=== PATIENT | female | born 1995 | race African-American/Black ===

== ENCOUNTER 2018-09-17 18:02 | Emergency (ER) | payer SELFPAY ==
--- NOTE | 2018-09-17 19:54 | ER Document Report ---
ED Medical Screen (RME) - General Chief Complaint: Flank Pain Stated Complaint: ABDOMINAL PAIN Time Seen by Provider: 09/17/18 19:45 Mode of Arrival: Ambulatory Information source: Patient Notes: Patient is a 22-year-old female who presents to the emergency department with a chief complaint of bilateral flank pain and vaginal pain. Her symptoms started 3 days ago. She does have history of kidney infections in the past. She also complains of mild spotting. Her last menstrual cycle was in the beginning of August. She is sexually active. TRAVEL OUTSIDE OF THE [place] IN LAST 30 DAYS: No - Related Data Allergies/Adverse Reactions: No Known Allergies Allergy (Unverified 09/17/18 18:11) Physical Exam - Abdominal Inspection: Normal Tenderness: Tender - Lower abdomen Doctor's Discharge - Discharge Referrals: SUSAN STEARNS MD [Primary Care Provider] - Follow up as needed
[2018-09-17 20:55] LABS: ABSOLUTE EOSINOPHILS # (AUTO) 0.3 10^3/uL (0.0-0.6); ABSOLUTE LYMPHOCYTES (AUTO) 2.1 10^3/uL (0.5-4.7); ABSOLUTE MONOCYTES (AUTO) 0.7 10^3/uL (0.1-1.4); ABSOLUTE NEUT (AUTO) 4.3 10^3/uL (1.7-8.2); BASOPHILS % (AUTO) 0.7 % (0-2); EOSINOPHILS % (AUTO) 4.1 % (0-6); HEMATOCRIT 35.4 % (36.0-47.0); HEMOGLOBIN 11.7 g/dL (12.0-15.5); LYMPHOCYTES % (AUTO) 28.2 % (13-45); MEAN CORPUSCULAR HEMOGLOBIN 29.5 pg (27.0-33.4); MEAN CORPUSCULAR VOLUME 90 fl (80-97); MONOCYTES % (AUTO) 9.4 % (3-13); PLATELET COUNT 299 10^3/uL (150-450); RED BLOOD COUNT 3.96 10^6/uL (3.72-5.28); RED CELL DISTRIBUTION WIDTH 14.7 % (11.5-14.0); SEGMENTED NEUTROPHILS % (AUTO) 57.6 % (42-78); TOTAL CELLS COUNTED % (AUTO) 100 %; WHITE BLOOD COUNT 7.4 10^3/uL (4.0-10.5)
[2018-09-17 21:01] LABS: APPEARANCE,URINE SLIGHTLY-CLOUDY; BILIRUBIN,URINE NEGATIVE (NEGATIVE); COLOR,URINE YELLOW; GLUCOSE, URINE NEGATIVE (NEGATIVE); KETONES,URINE NEGATIVE (NEGATIVE); LEUKOCYTE ESTERASE,URINE TRACE (NEGATIVE); NITRITE,URINE NEGATIVE (NEGATIVE); PROTEIN,URINE NEGATIVE (NEGATIVE); URINE SPECIFIC GRAVITY 1.029
[2018-09-17 21:09] LABS: ALANINE AMINOTRANSFERASE 17 U/L (9-52); ALBUMIN 4.3 g/dL (3.5-5.0); ALKALINE PHOSPHATASE 70 U/L (38-126); ANION GAP 9 (5-19); ASPARTATE AMINO TRANSFERASE 18 U/L (14-36); BILIRUBIN,DIRECT 0.2 mg/dL (0.0-0.4); BILIRUBIN,TOTAL 0.2 mg/dL (0.2-1.3); BLOOD UREA NITROGEN 12 mg/dL (7-20); CALCIUM 9.7 mg/dL (8.4-10.2); CARBON DIOXIDE 25 mmol/L (22-30); CHLORIDE 106 mmol/L (98-107); GLUCOSE 90 mg/dL (75-110); TOTAL PROTEIN 7.9 g/dL (6.3-8.2)
--- NOTE | 2018-09-18 00:04 | ER Document Report ---
ED GI/ - General Chief Complaint: Flank Pain Stated Complaint: ABDOMINAL PAIN Time Seen by Provider: 09/17/18 23:51 Mode of Arrival: Ambulatory Information source: Patient Notes: Patient is a 22-year-old female with no significant past medical history who presents with 1 day of left flank pain that radiates down to the left lower abdomen. Patient reports that for 5 months ago she experienced "a kidney infection" that felt similar to this, she denies fevers or chills, has had nausea with at least 2 episodes of nonbloody and nonbilious emesis. Patient reports that her periods are irregular and this is normal, her last period was the first week of August but she missed her periods in both June and July. She denies dysuria or hematuria. She denies vaginal bleeding or discharge. TRAVEL OUTSIDE OF THE [place] IN LAST 30 DAYS: No - HPI Patient complains to provider of: Abdominal pain, Flank pain Onset: This afternoon Timing/Duration: Sudden Quality of pain: Cramping, Fullness, Stabbing Severity at maximum: Severe Severity in ED: Moderate Pain Level: 3 Location: LLQ, Left flank Vaginal bleeding (Compared to normal period): None Menstrual period history: Irregular Sexual history: Active Associated symptoms: Nausea, Vomiting. denies: Fever, Vaginal discharge Exacerbated by: Movement Relieved by: Denies Similar symptoms previously: No Recently seen / treated by doctor: No - Related Data Allergies/Adverse Reactions: No Known Allergies Allergy (Unverified 09/17/18 18:11) Past Medical History - General Information source: Patient - Social History Smoking Status: Never Smoker Chew tobacco use (# tins/day): No Frequency of alcohol use: Occasional Drug Abuse: Marijuana Lives with: Family, Friend Family History: Reviewed & Not Pertinent Patient has suicidal ideation: No Patient has homicidal ideation: No - Past Medical History Cardiac Medical History: Reports: None Pulmonary Medical History: Reports: None EENT Medical History: Reports: None Neurological Medical History: Reports: None Endocrine Medical History: Reports: None Renal/ Medical History: Reports: None. Denies: Hx Peritoneal Dialysis Malignancy Medical History: Reports: None GI Medical History: Reports: None Musculoskeletal Medical History: Reports None Skin Medical History: Reports None Psychiatric Medical History: Reports: None Traumatic Medical History: Reports: None Infectious Medical History: Reports: None Past Surgical History: Reports: Hx Gynecologic Surgery - X4 - Immunizations Immunizations up to date: Yes Hx Diphtheria, Pertussis, Tetanus Vaccination: Yes History of Influenza Vaccine for 06/2017 - 11/2017 Season: Unknown Review of Systems - Review of Systems Constitutional: No symptoms reported EENT: No symptoms reported Cardiovascular: No symptoms reported Respiratory: No symptoms reported Gastrointestinal: See HPI, Abdominal pain, Nausea, Vomiting. denies: Black stools Genitourinary: See HPI, Flank pain Female Genitourinary: No symptoms reported Musculoskeletal: No symptoms reported Skin: No symptoms reported Hematologic/Lymphatic: No symptoms reported Neurological/Psychological: No symptoms reported -: Yes All other systems reviewed and negative Physical Exam - Vital signs Interpretation: Normal - Notes Notes: Well-appearing in no acute distress - General General appearance: Appears well, Alert - HEENT Head: Normocephalic, Atraumatic Eyes: Normal Pupils: PERRL - Respiratory Respiratory status: No respiratory distress Chest status: Nontender Breath sounds: Normal Chest palpation: Normal - Cardiovascular Rhythm: Regular Heart sounds: Normal auscultation Murmur: No - Abdominal Inspection: Normal Distension: No distension Bowel sounds: Normal Tenderness: Tender - Mild left flank tenderness, positive CVA tenderness on the left. No: Guarding, Rebound Organomegaly: No organomegaly - Rectal Notes: Deferred - Genitourinary Notes: Deferred - Back Back: Normal, Nontender - Extremities General upper extremity: Normal inspection, Nontender, Normal color, Normal ROM, Normal temperature General lower extremity: Normal inspection, Nontender, Normal color, Normal ROM, Normal temperature, Normal weight bearing. No: Shawanda's sign - Neurological Neuro grossly intact: Yes Cognition: Normal Orientation: AAOx4 Hannah Coma Scale Eye Opening: Spontaneous Hannah Coma Scale Verbal: Oriented [place] Coma Scale Motor: Obeys Commands [place] Coma Scale Total: 15 Speech: Normal Motor strength normal: LUE, RUE, LLE, RLE Sensory: Normal - Psychological Associated symptoms: Normal affect, Normal mood - Skin Skin Temperature: Warm Skin Moisture: Dry Skin Color: Normal Course - Re-evaluation Re-evalutation: 09/18/18 01:24 Labs are grossly unremarkable, urinalysis shows a positive test. Will add on quantitative beta-hCG to blood work and obtain a pelvic ultrasound. 09/18/18 03:30 Quantitative beta-hCG is within normal limits. Pelvic ultrasound shows the beginnings of a gestational sac in the uterus. Patient will be discharged home with return precautions and OB follow-up, she will be provided with a prescription for vitamins. Patient voices both understanding and agreeing with the plan. - Laboratory Result Diagrams: 09/17/18 20:07 09/17/18 20:07 Laboratory results interpreted by me: 09/17/18 09/17/18 09/17/18 18:45 20:07 20:07 Hgb 11.7 L Hct 35.4 L RDW 14.7 H Beta HCG, Quant 999.46 H Urine Urobilinogen 4.0 H Ur Leukocyte Esterase TRACE H Urine HCG, Qual POSITIVE H - Diagnostic Test Radiology reviewed: Reports reviewed Discharge - Discharge Clinical Impression: Abdominal pain affecting Condition: Good Disposition: HOME, SELF-CARE Instructions: Abdominal Pain ([facility]) Additional Instructions: Please follow-up with an silk weaver to establish care. You have been provided with a prescription for vitamins, take this daily as instructed. It is safe to take Tylenol 500 mg every 6-8 hours as needed for pain; did not consume more than 3 g of Tylenol daily. Return to the emergency department if you experience worsening pain, vaginal bleeding/discharge, or have any other concerning symptom. Prescriptions: Pnv,Calcium 72/Iron/Folic Acid [ Plus Tablet] 1 each PO DAILY #30 tablet Referrals: SUSAN STEARNS MD [COMMUNITY BASED STAFF] - Follow up as needed JOLANTA LEWIS MD [ACTIVE STAFF] - Follow up as needed Print Language: Estonian
[2018-09-18] MEDS ORDERED: NORMAL SALINE 1000 ML 1,000 ML IV ONE (01:02)
[2018-09-18] MEDS ORDERED: METOCLOPRAMIDE HCL INJ/PF 10 MG/2 ML SDV IV ONE (01:02)
--- NOTE | 2018-09-18 02:38 | RADIOLOGY REPORT (SQ) ---
CLINICAL HISTORY: Abdominal pain COMPARISON: None. TECHNIQUE: US TRANSVAGINAL on 09/18/2018 1:[address] TRANSCRIBER FINDINGS: Uterus measures 8.5 cm in greatest dimension. Difficult to completely exclude an irregular tiny gestational sac within the uterus. Cervical length is 3.4 cm. Right ovary measures 3.9 x 2.4 x 2.7 cm and the left ovary measures 2.4 x 1.9 x 2.0 cm. There is patent flow to both ovaries. There is small amount of free fluid. IMPRESSION: Very questionable minimal hypoechoic structure in the uterus which may represent a gestational sac. Correlate with test results.
[2018-09-18 03:39] VITALS: BP 135/70
== END 2018-09-18 03:39 | disposition home or self-care (01) ==
LOC: ER 18:02
DX: O26.891 Other specified pregnancy related conditions, first trimester (principal); R10.9 Unspecified abdominal pain; R10.32 Left lower quadrant pain; O21.9 Vomiting of pregnancy, unspecified; O99.321 Drug use complicating pregnancy, first trimester; F12.10 Cannabis abuse, uncomplicated; Z3A.01 Less than 8 weeks gestation of pregnancy; Z87.440 Personal history of urinary (tract) infections
CPT/HCPCS: 99284; 96361; 96374; 36415; 84702; 85025; 81025; 80053; 81001; 76817; J2765; J7030

== ENCOUNTER 2018-09-22 17:30 | Emergency (ER) | payer SELFPAY ==
[2018-09-22 17:38] VITALS: BP 134/74
[2018-09-22 19:28] LABS: APPEARANCE,URINE CLOUDY; BILIRUBIN,URINE NEGATIVE (NEGATIVE); COLOR,URINE YELLOW; GLUCOSE, URINE NEGATIVE (NEGATIVE); KETONES,URINE 20 mg/dL (NEGATIVE); LEUKOCYTE ESTERASE,URINE LARGE (NEGATIVE); NITRITE,URINE NEGATIVE (NEGATIVE); PROTEIN,URINE 30 mg/dL (NEGATIVE); URINE SPECIFIC GRAVITY 1.031
--- NOTE | 2018-09-22 20:51 | ER Document Report ---
ED General - General Chief Complaint: Vag Bleeding, +preg <12wks Stated Complaint: VAGINAL BLEEDING Time Seen by Provider: 09/22/18 18:34 Mode of Arrival: Ambulatory Information source: Patient Notes: 22-year-old female 86 at approximately 4 weeks gestation per last menstrual period which she reports to be 08/20/2018 presents with complaint of lower abdominal cramping, vaginal bleeding that occurred 4 hours prior to arrival but resolved. TRAVEL OUTSIDE OF THE [place] IN LAST 30 DAYS: No - HPI Onset: Just prior to arrival Onset/Duration: Sudden, Gone Quality of pain: Cramping Severity: Mild Associated symptoms: Nausea. denies: Body/muscle aches, Chest pain, Diarrhea, Fever, Headache, Vomiting, Shortness of breath Exacerbated by: Denies Relieved by: Denies Similar symptoms previously: Yes Recently seen / treated by doctor: No - Related Data Allergies/Adverse Reactions: No Known Allergies Allergy (Unverified 09/17/18 18:11) Past Medical History - General Information source: Patient, [facility] Records Last Menstrual Period: Aug 20 - Social History Smoking Status: Current Every Day Smoker Cigarette use (# per day): Yes - 15 Smoking Education Provided: Yes - Smoking cessation counseling was provided for 4 minutes at the bedside Frequency of alcohol use: Occasional Drug Abuse: Marijuana Lives with: Family Family History: Reviewed & Not Pertinent Patient has suicidal ideation: No Patient has homicidal ideation: No - Past Medical History Cardiac Medical History: Reports: Hx Hypertension Renal/ Medical History: Denies: Hx Peritoneal Dialysis Past Surgical History: Reports: Hx Gynecologic Surgery - X4 - Immunizations Immunizations up to date: Yes Hx Diphtheria, Pertussis, Tetanus Vaccination: Yes Review of Systems - Review of Systems Notes: REVIEW OF SYSTEMS: CONSTITUTIONAL : Denies fever, chills, or sweats. Denies recent illness. Denies weight loss, recent hospitalizations. EENT: Denies visual changes, eye pain. Denies sore throat, oral lesions, difficulty swallowing. CARDIOVASCULAR: Denies chest pain. Denies palpitations. Denies lower extremity edema. RESPIRATORY: Denies cough. Denies shortness of breath, wheezing. GASTROINTESTINAL: Denies abdominal pain or distention. Denies vomiting, or diarrhea. Denies blood in vomitus, stools, or per rectum. Denies black, tarry stools. Denies constipation. GENITOURINARY: Denies difficulty urinating, painful urination, frequency, blood in urine, or vaginal discharge. MUSCULOSKELETAL: Denies back or neck pain or stiffness. Denies joint pain or swelling. SKIN: Denies rash, lesions or sores. HEMATOLOGIC : Denies easy bruising or bleeding. LYMPHATIC: Denies swollen glands. NEUROLOGICAL: Denies confusion or altered mental status. Denies loss of consciousness. Denies dizziness or lightheadedness. Denies headache. Denies weakness or paralysis. Denies problems difficulty with ambulation, slurred speech. Denies sensory loss, numbness, or tingling. Denies seizures. PSYCHIATRIC: Denies anxiety or stress. Denies depression, suicidal ideation, or homicidal ideation. Denies visual or auditory hallucinations. Physical Exam - Vital signs Vitals: Temp Pulse Resp BP 98.4 F 85 14 134/74 H 09/22/18 17:35 09/22/18 17:35 09/22/18 17:35 09/22/18 17:35 Interpretation: Hypertensive. No: Febrile - Notes Notes: PHYSICAL EXAMINATION: GENERAL: Well-appearing, well-nourished and in no acute distress. HEAD: Atraumatic, normocephalic. EYES: Pupils equal round and reactive to light, extraocular movements intact, conjunctiva are normal. ENT: Nares patent, oropharynx clear without exudates. Moist mucous membranes. NECK: Normal range of motion, supple without lymphadenopathy LUNGS: Breath sounds clear to auscultation bilaterally and equal. No wheezes rales or rhonchi. HEART: Regular rate and rhythm without murmurs ABDOMEN: Soft, nontender, nondistended abdomen. No guarding, no rebound. No masses appreciated. Female : Musculoskeletal: Normal range of motion, no pitting or edema. No cyanosis. NEUROLOGICAL: Cranial nerves grossly intact. Normal speech, normal gait. Normal sensory, motor exams PSYCH: Normal mood, normal affect. SKIN: Warm, Dry, normal turgor, no rashes or lesions noted. Course - Re-evaluation Re-evalutation: Laboratory 09/22/18 09/22/18 09/22/18 19:01 19:01 19:01 Beta HCG, Quant 4351.30 H Total Beta HCG POSITIVE Urine Color YELLOW Urine Appearance CLOUDY Urine pH 5.0 Ur Specific [place] 1.031 Urine Protein 30 H Urine Glucose (UA) NEGATIVE Urine Ketones 20 H Urine Blood NEGATIVE Urine Nitrite NEGATIVE Urine Bilirubin NEGATIVE Urine Urobilinogen 2.0 H Ur Leukocyte Esterase LARGE H Urine WBC (Auto) 35 Urine RBC (Auto) 7 Squamous Epi Cells Auto 17 Urine Mucus (Auto) MANY Urine Ascorbic Acid NEGATIVE Urine HCG, Qual POSITIVE H Blood Type O POSITIVE Rhogam Indicated RHOGAM NOT INDICATED 09/22/18 22:59 Patient eloped prior to completion of exam, transvaginal ultrasound. Urinalysis consistent with urinary tract infection. Patient's beta quant is 4300. She is O+ so RhoGam is not indicated. If patient returns she should be treated for urinary tract infection and a transvaginal ultrasound should be performed to assess for ectopic . - Vital Signs Vital signs: Temp Pulse Resp BP Pulse Ox 98.4 F 85 14 134/74 H 09/22/18 17:35 09/22/18 17:35 09/22/18 17:35 09/22/18 17:35 - Laboratory Laboratory results interpreted by me: 09/22/18 09/22/18 19:01 19:01 Beta HCG, Quant 4351.30 H Urine Protein 30 H Urine Ketones 20 H Urine Urobilinogen 2.0 H Ur Leukocyte Esterase LARGE H Urine HCG, Qual POSITIVE H Discharge - Discharge Clinical Impression: Abdominal pain affecting , Vaginal bleeding during UTI (urinary tract infection) Qualifiers: Urinary tract infection type: site unspecified Hematuria presence: without hematuria Qualified Code(s): N39.0 - Urinary tract infection, site not specified Condition: Good Disposition: ELOPED Instructions: Urinary Tract Infection ([facility])
== END 2018-09-22 21:21 | disposition left against medical advice (07) ==
LOC: ER 17:30
DX: O20.9 Hemorrhage in early pregnancy, unspecified (principal); O23.41 Unspecified infection of urinary tract in pregnancy, first trimester; O26.891 Other specified pregnancy related conditions, first trimester; R10.30 Lower abdominal pain, unspecified; R11.0 Nausea; O99.331 Smoking (tobacco) complicating pregnancy, first trimester; F17.210 Nicotine dependence, cigarettes, uncomplicated; Z71.6 Tobacco abuse counseling; O16.1 Unspecified maternal hypertension, first trimester; Z3A.01 Less than 8 weeks gestation of pregnancy; Z53.20 Procedure and treatment not carried out because of patient's decision for unspecified reasons
CPT/HCPCS: 36415; 81001; 81025; 84702; 86900; 86901; 87086; 99281; 99406

== ENCOUNTER 2018-10-29 18:51 | Emergency (ER) | payer MEDICAID ==
--- NOTE | 2018-10-29 20:18 | ER Document Report ---
ED Medical Screen (RME) - General TRAVEL OUTSIDE OF THE [place] IN LAST 30 DAYS: No <LAURELADI - Last Filed: 10/29/18 20:17> <SHIELA JJ - Last Filed: 10/29/18 23:41> - General Chief Complaint: Vag Bleeding, +preg <12wks Stated Complaint: VAGINAL BLEEDING Time Seen by Provider: 10/29/18 20:14 Primary Care Provider: HARRIET AVALOS MD [ACTIVE STAFF] - Follow up in 3-5 days Notes: 22 years old female , 3, presents today with 11-week . [facility] and they noted some blood per cervix. Therefore she was referred here to be evaluated further. Denies any abdominal cramps. Denies any other constitutional symptoms. (ADI BARRAGAN) - Related Data Allergies/Adverse Reactions: No Known Allergies Allergy (Unverified 09/17/18 18:11) Past Medical History - Past Medical History Cardiac Medical History: Reports: Hx Hypertension Renal/ Medical History: Denies: Hx Peritoneal Dialysis Past Surgical History: Reports: Hx Gynecologic Surgery - X4 - Immunizations Immunizations up to date: Yes Hx Diphtheria, Pertussis, Tetanus Vaccination: Yes History of Influenza Vaccine for 06/2017 - 11/2017 Season: Unknown <ADI BARRAGAN - Last Filed: 10/29/18 20:17> - Vital signs Vitals: Temp Pulse Resp BP Pulse Ox 98.4 F 84 14 134/64 H 100 10/29/18 19:37 10/29/18 19:37 10/29/18 19:37 10/29/18 19:37 10/29/18 19:37 Course - Laboratory Result Diagrams: 10/29/18 21:09 <SHIELA JJ - Last Filed: 10/29/18 23:41> - Vital Signs Vital signs: Temp Pulse Resp BP Pulse Ox 98.3 F 89 14 117/85 99 10/29/18 23:37 10/29/18 23:37 10/29/18 23:37 10/29/18 23:37 10/29/18 23:37 - Laboratory Laboratory results interpreted by me: 02/12/19 02/12/19 02/12/19 21:09 21:09 21:09 Hct 35.3 L RDW 14.2 H Beta HCG, Quant 747589.00 H Urine Urobilinogen 2.0 H Ur Leukocyte Esterase LARGE H Doctor's Discharge <ADI BARRAGAN - Last Filed: 10/29/18 20:17> <SHIELA JJ - Last Filed: 10/29/18 23:41> - Discharge Clinical Impression: First trimester , Abdominal pain during in first trimester, Vaginal bleeding during UTI (urinary tract infection) Qualifiers: Urinary tract infection type: site unspecified Hematuria presence: without hematuria Qualified Code(s): N39.0 - Urinary tract infection, site not specified Condition: Good Disposition: HOME, SELF-CARE Instructions: Nausea or Vomiting, Nonspecific ([facility]), Pelvic Pain in ([facility]), Threatened Miscarriage ([facility]), Vaginal Bleeding ([facility]), Urinary Tract Infection ([facility]) Additional Instructions: Your urine shows findings consistent with a urinary tract infection. Please take all the antibiotics as directed even if your symptoms have improved. Please follow-up with your primary care physician as needed. Return to emergency room if you develop fever >101F, persistent vomiting, become lethargic, have severe pain in your sides, or any other symptoms that are concerning to you. Prescriptions: Nitrofurantoin Macrocrystal [Macrodantin] 100 mg PO BID 7 Days #14 capsule Referrals: HARRIET AVALOS MD [ACTIVE STAFF] - Follow up in 3-5 days
[2018-10-29 21:36] LABS: APPEARANCE,URINE CLOUDY; BILIRUBIN,URINE NEGATIVE (NEGATIVE); COLOR,URINE YELLOW; GLUCOSE, URINE NEGATIVE (NEGATIVE); KETONES,URINE NEGATIVE (NEGATIVE); LEUKOCYTE ESTERASE,URINE LARGE (NEGATIVE); NITRITE,URINE NEGATIVE (NEGATIVE); PROTEIN,URINE NEGATIVE (NEGATIVE); URINE SPECIFIC GRAVITY 1.024
[2018-10-29 21:37] LABS: ABSOLUTE EOSINOPHILS # (AUTO) 0.2 10^3/uL (0.0-0.6); ABSOLUTE LYMPHOCYTES (AUTO) 1.8 10^3/uL (0.5-4.7); ABSOLUTE MONOCYTES (AUTO) 0.8 10^3/uL (0.1-1.4); ABSOLUTE NEUT (AUTO) 6.8 10^3/uL (1.7-8.2); BASOPHILS % (AUTO) 0.5 % (0-2); EOSINOPHILS % (AUTO) 1.8 % (0-6); HEMATOCRIT 35.3 % (36.0-47.0); LYMPHOCYTES % (AUTO) 18.7 % (13-45); MEAN CORPUSCULAR HEMOGLOBIN 30.3 pg (27.0-33.4); MEAN CORPUSCULAR HGB CONC 33.8 g/dL (32.0-36.0); MEAN CORPUSCULAR VOLUME 90 fl (80-97); MONOCYTES % (AUTO) 8.5 % (3-13); PLATELET COUNT 276 10^3/uL (150-450); RED BLOOD COUNT 3.94 10^6/uL (3.72-5.28); RED CELL DISTRIBUTION WIDTH 14.2 % (11.5-14.0); SEGMENTED NEUTROPHILS % (AUTO) 70.5 % (42-78); TOTAL CELLS COUNTED % (AUTO) 100 %; WHITE BLOOD COUNT 9.7 10^3/uL (4.0-10.5)
[2018-10-29] MEDS ORDERED: NORMAL SALINE 1000 ML 1,000 ML IV ONE (22:16)
[2018-10-29] MEDS ORDERED: DIPHENHYDRAMINE HCL 50 MG/ML VIAL IV ONE (22:16)
[2018-10-29] MEDS ORDERED: METOCLOPRAMIDE HCL INJ/PF 10 MG/2 ML SDV IV ONE (22:16)
--- NOTE | 2018-10-29 22:46 | ER Document Report ---
ED General - General Chief Complaint: Vag Bleeding, +preg <12wks Stated Complaint: VAGINAL BLEEDING Time Seen by Provider: 10/29/18 20:14 Primary Care Provider: HARRIET AVALOS MD [ACTIVE STAFF] - Follow up in 3-5 days Mode of Arrival: Ambulatory Information source: Patient, [facility] Records Notes: 22-year-old female A3 at approximately 11 weeks gestation presents with complaint of vaginal bleeding and abdominal cramping. Patient states that she had 2 days of intermittent vaginal bleeding. She states yesterday she passed some blood clots. She states that today she has not experienced any bleeding. She was seen at the health department yesterday where a pelvic exam was performed and blood was seen. She also states that she was tested for STDs yesterday as well. Patient also complaining of intermittent nausea, dizziness and headache. She has not yet established care with CLINICAL SUPPORT NURSE. TRAVEL OUTSIDE OF THE [place] IN LAST 30 DAYS: No - HPI Onset: Other Onset/Duration: Gradual, Intermittent Quality of pain: Cramping Severity: Mild Associated symptoms: Nausea. denies: Chest pain, Chills, Nonproductive cough, Productive cough, Fever, Vomiting, Shortness of breath Exacerbated by: Denies Relieved by: Denies Similar symptoms previously: Yes Recently seen / treated by doctor: Yes - Related Data Allergies/Adverse Reactions: No Known Allergies Allergy (Unverified 09/17/18 18:11) Past Medical History - General Information source: Patient, [facility] Records - Social History Smoking Status: Never Smoker Chew tobacco use (# tins/day): No Frequency of alcohol use: None Drug Abuse: Marijuana Lives with: Family Family History: Reviewed & Not Pertinent Patient has suicidal ideation: No Patient has homicidal ideation: No - Past Medical History Cardiac Medical History: Reports: Hx Hypertension Renal/ Medical History: Denies: Hx Peritoneal Dialysis Past Surgical History: Reports: Hx Gynecologic Surgery - X4 - Immunizations Immunizations up to date: Yes Hx Diphtheria, Pertussis, Tetanus Vaccination: Yes Review of Systems - Review of Systems Notes: REVIEW OF SYSTEMS: CONSTITUTIONAL : Denies fever, chills, or sweats. Denies recent illness. Denies weight loss, recent hospitalizations. EENT: Denies visual changes, eye pain. Denies sore throat, oral lesions, difficulty swallowing. CARDIOVASCULAR: Denies chest pain. Denies palpitations. Denies lower extremity edema. RESPIRATORY: Denies cough. Denies shortness of breath, wheezing. GASTROINTESTINAL: Denies abdominal distention. Denies vomiting, or diarrhea. Denies blood in vomitus, stools, or per rectum. Denies black, tarry stools. Denies constipation. GENITOURINARY: Denies difficulty urinating, painful urination, frequency, blood in urine, or vaginal discharge. MUSCULOSKELETAL: Denies back or neck pain or stiffness. Denies joint pain or swelling. SKIN: Denies rash, lesions or sores. HEMATOLOGIC : Denies easy bruising or bleeding. LYMPHATIC: Denies swollen glands. NEUROLOGICAL: Denies confusion or altered mental status. Denies loss of consciousness. Denies lightheadedness. Denies headache. Denies weakness or paralysis. Denies problems difficulty with ambulation, slurred speech. Denies sensory loss, numbness, or tingling. Denies seizures. PSYCHIATRIC: Denies anxiety or stress. Denies depression, suicidal ideation, or homicidal ideation. Denies visual or auditory hallucinations. Physical Exam - Vital signs Vitals: Temp Pulse Resp BP Pulse Ox 98.4 F 84 14 134/64 H 100 10/29/18 19:37 10/29/18 19:37 10/29/18 19:37 10/29/18 19:37 10/29/18 19:37 Interpretation: Hypertensive - Notes Notes: PHYSICAL EXAMINATION: GENERAL: Well-appearing, well-nourished and in no acute distress. HEAD: Atraumatic, normocephalic. EYES: Pupils equal round and reactive to light, extraocular movements intact, conjunctiva are normal. ENT: Nares patent, oropharynx clear without exudates. Moist mucous membranes. NECK: Normal range of motion, supple without lymphadenopathy LUNGS: Breath sounds clear to auscultation bilaterally and equal. No wheezes rales or rhonchi. HEART: Regular rate and rhythm without murmurs ABDOMEN: Generalized abdominal tenderness with palpation no guarding, no rebound. No masses appreciated. Female : Performed yesterday Musculoskeletal: Normal range of motion, no pitting or edema. No cyanosis. NEUROLOGICAL: Cranial nerves grossly intact. Normal speech, normal gait. Normal sensory, motor exams PSYCH: Normal mood, normal affect. SKIN: Warm, Dry, normal turgor, no rashes or lesions noted. Course - Re-evaluation Re-evalutation: Laboratory 10/29/18 10/29/18 10/29/18 21:09 21:09 21:09 WBC 9.7 RBC 3.94 Hgb 12.0 Hct 35.3 L MCV 90 MCH 30.3 MCHC 33.8 RDW 14.2 H Plt Count 276 Seg Neutrophils % 70.5 Lymphocytes % 18.7 Monocytes % 8.5 Eosinophils % 1.8 Basophils % 0.5 Absolute Neutrophils 6.8 Absolute Lymphocytes 1.8 Absolute Monocytes 0.8 Absolute Eosinophils 0.2 Absolute Basophils 0.0 Beta HCG, Quant 387439.00 H Total Beta HCG POSITIVE Urine Color YELLOW Urine Appearance CLOUDY Urine pH 6.0 Ur Specific [place] 1.024 Urine Protein NEGATIVE Urine Glucose (UA) NEGATIVE Urine Ketones NEGATIVE Urine Blood NEGATIVE Urine Nitrite NEGATIVE Urine Bilirubin NEGATIVE Urine Urobilinogen 2.0 H Ur Leukocyte Esterase LARGE H Urine WBC (Auto) 20 Urine RBC (Auto) 9 U Hyaline Cast (Auto) 1 Squamous Epi Cells Auto 14 Urine Mucus (Auto) FEW Urine Ascorbic Acid NEGATIVE Obstetrics Ultrasound 10/29/18 22:04 IMPRESSION: Living 1st trimester intrauterine gestation. No evidence of complication. Temp Pulse Resp BP Pulse Ox 98.4 F 84 14 134/64 H 100 10/29/18 19:37 10/29/18 19:37 10/29/18 19:37 10/29/18 19:37 10/29/18 19:37 10/29/18 22:46 22-year-old female G5P 183 at approximately 11 weeks presents with abdominal cramping and vaginal bleeding that occurred twice with the last occurrence yesterday. Patient was seen at the health department yesterday where a pelvic exam was performed and blood was seen. Patient was seen by myself approximately 2 weeks ago and a transvaginal ultrasound was performed that showed a questionable gestational sac. Transvaginal ultrasound pending. 10/29/18 23:06 Transvaginal ultrasound was obtained and showed a live intrauterine with a heart rate of 162. It is without evidence of complication. 10/29/18 23:16 Patient received IV fluids, Tylenol, Benadryl and Reglan for her headache and abdominal cramping. Ultrasound findings discussed with the patient as well as her need to establish CLINICAL SUPPORT NURSE care now that she is 10 weeks. Patient has expressed understanding of this importance. She states that she is taking vitamins and has nausea medication at home. Patient was evaluated and treated as appropriate for the patient's presenting symptoms and complaint, with consideration of any critical or life threatening conditions that may be associated with their obtained history and exam as noted above. All results were discussed with patient and she was provided a copy of her ultrasound report. Patient provided the opportunity to ask questions, and express concerns. Patient was educated on treatments based on their presumed diagnosis as noted above. At this time we will discharge the patient with return precautions and follow-up recommendations. Verbal discharge instructions given a the bedside. Medication warnings reviewed. Patient is in agreement with this plan and has verbalized understanding of return precautions. After careful consideration I feel that that patient can be safely discharged from the emergency department, they were advised to followup with a primary care physician in 2-3 days. Dictation on this chart was performed using voice recognition software and may result in unintended grammatical, spelling, syntax or errors. - Vital Signs Vital signs: Temp Pulse Resp BP Pulse Ox 98.4 F 84 14 134/64 H 100 10/29/18 19:37 10/29/18 19:37 10/29/18 19:37 10/29/18 19:37 10/29/18 19:37 - Laboratory Result Diagrams: 10/29/18 21:09 Laboratory results interpreted by me: 10/29/18 10/29/18 10/29/18 21:09 21:09 21:09 Hct 35.3 L RDW 14.2 H Beta HCG, Quant 291304.00 H Urine Urobilinogen 2.0 H Ur Leukocyte Esterase LARGE H - Diagnostic Test Radiology reviewed: Image reviewed, Reports reviewed Discharge - Discharge Clinical Impression: First trimester , Abdominal pain during in first trimester, Vaginal bleeding during Condition: Good Disposition: HOME, SELF-CARE Instructions: Pelvic Pain in ([facility]), Threatened Miscarriage ([facility]), Vaginal Bleeding ([facility]), Nausea or Vomiting, Nonspecific ([facility]) Referrals: HARRIET VAALOS MD [ACTIVE STAFF] - Follow up in 3-5 days
--- NOTE | 2018-10-29 22:59 | RADIOLOGY REPORT (SQ) ---
EXAM DESCRIPTION: US TRANSVAGINAL COMPLETED DATE/TME: 10/29/2018 22:04 CLINICAL HISTORY: 22 years Female, bleeding preg COMPARISON:09/18/2018 TECHNIQUE: Transvaginal. LIMITATIONS: None. FINDINGS: Living intrauterine fetus measures 10w0d with FELIPE of 05/27/2019. Cardiac activity is 162-bpm. [place]-rump length is 3.1-cm. 3.9-cm right ovary, 3.6-cm left ovary, 1.7-cm likely rightcorpus luteum, 3.5-cm cervical length with minimal fluid, and no free fluid. IMPRESSION: Living 1st trimester intrauterine gestation. No evidence of complication.
[2018-10-29] MEDS ORDERED: ACETAMINOPHEN 325 MG TABLET PO ONE (23:05)
[2018-10-29 23:40] VITALS: BP 117/85
== END 2018-10-30 00:09 | disposition home or self-care (01) ==
LOC: ER 18:51
DX: O20.9 Hemorrhage in early pregnancy, unspecified (principal); O23.41 Unspecified infection of urinary tract in pregnancy, first trimester; O26.891 Other specified pregnancy related conditions, first trimester; R10.9 Unspecified abdominal pain; R10.817 Generalized abdominal tenderness; R11.0 Nausea; R51 Headache; R42 Dizziness and giddiness; O99.321 Drug use complicating pregnancy, first trimester; F12.10 Cannabis abuse, uncomplicated; O16.1 Unspecified maternal hypertension, first trimester; Z3A.00 Weeks of gestation of pregnancy not specified
CPT/HCPCS: 99284; 96361; 96374; 96375; 36415; 84702; 85025; 81001; 76817; J3490; J1200; J2765; J7030

== ENCOUNTER 2018-11-17 18:35 | Emergency (ER) | payer MEDICAID ==
[2018-11-17 18:45] VITALS: BP 115/60
[2018-11-17] MEDS ORDERED: ONDANSETRON 4 MG TAB.RAPDIS PO ONE (18:50)
--- NOTE | 2018-11-17 18:52 | ER Document Report ---
ED Medical Screen (RME) - General Chief Complaint: Headache Stated Complaint: HEADACHE Time Seen by Provider: 11/17/18 18:50 Mode of Arrival: Ambulatory Information source: Patient TRAVEL OUTSIDE OF THE [place] IN LAST 30 DAYS: No - HPI Patient complains to provider of: TELLEZ; Onset: Other - pt with severe TELLEZ for the past 4 days with N/V. Pt . is 4 months - Related Data Allergies/Adverse Reactions: No Known Allergies Allergy (Unverified 09/17/18 18:11) Past Medical History - Past Medical History Cardiac Medical History: Reports: Hx Hypertension Renal/ Medical History: Denies: Hx Peritoneal Dialysis Past Surgical History: Reports: Hx Gynecologic Surgery - X4 - Immunizations Immunizations up to date: Yes Hx Diphtheria, Pertussis, Tetanus Vaccination: Yes History of Influenza Vaccine for 06/2017 - 11/2017 Season: Unknown Physical Exam - Vital signs Vitals: Temp Pulse Resp BP Pulse Ox 97.7 F 94 18 115/60 97 11/17/18 18:44 11/17/18 18:44 11/17/18 18:44 11/17/18 18:44 11/17/18 18:44 Course - Vital Signs Vital signs: Temp Pulse Resp BP Pulse Ox 97.7 F 94 18 115/60 97 11/17/18 18:44 11/17/18 18:44 11/17/18 18:44 11/17/18 18:44 11/17/18 18:44
[2018-11-17 19:09] LABS: ABSOLUTE EOSINOPHILS # (AUTO) 0.1 10^3/uL (0.0-0.6); ABSOLUTE LYMPHOCYTES (AUTO) 1.7 10^3/uL (0.5-4.7); ABSOLUTE MONOCYTES (AUTO) 0.5 10^3/uL (0.1-1.4); ABSOLUTE NEUT (AUTO) 6.6 10^3/uL (1.7-8.2); BASOPHILS % (AUTO) 0.4 % (0-2); EOSINOPHILS % (AUTO) 1.4 % (0-6); HEMATOCRIT 35.6 % (36.0-47.0); LYMPHOCYTES % (AUTO) 18.5 % (13-45); MEAN CORPUSCULAR HGB CONC 33.8 g/dL (32.0-36.0); MEAN CORPUSCULAR VOLUME 89 fl (80-97); PLATELET COUNT 294 10^3/uL (150-450); RED BLOOD COUNT 4.01 10^6/uL (3.72-5.28); SEGMENTED NEUTROPHILS % (AUTO) 73.7 % (42-78); TOTAL CELLS COUNTED % (AUTO) 100 %; WHITE BLOOD COUNT 8.9 10^3/uL (4.0-10.5)
[2018-11-17 19:22] LABS: ALANINE AMINOTRANSFERASE 19 U/L (9-52); ALBUMIN 4.1 g/dL (3.5-5.0); ALKALINE PHOSPHATASE 63 U/L (38-126); ANION GAP 9 (5-19); ASPARTATE AMINO TRANSFERASE 16 U/L (14-36); BILIRUBIN,DIRECT 0.1 mg/dL (0.0-0.4); BILIRUBIN,TOTAL 0.2 mg/dL (0.2-1.3); BLOOD UREA NITROGEN 5 mg/dL (7-20); CALCIUM 9.6 mg/dL (8.4-10.2); CARBON DIOXIDE 23 mmol/L (22-30); CHLORIDE 103 mmol/L (98-107); GLUCOSE 78 mg/dL (75-110); SODIUM 135.2 mmol/L (137-145); TOTAL PROTEIN 7.6 g/dL (6.3-8.2)
[2018-11-17] MEDS ORDERED: METOCLOPRAMIDE HCL INJ/PF 10 MG/2 ML SDV IV ONE (20:32)
[2018-11-17] MEDS ORDERED: DIPHENHYDRAMINE HCL 50 MG/ML VIAL IV ONE (20:33)
[2018-11-17] MEDS ORDERED: NORMAL SALINE 1000 ML 1,000 ML IV ONE (20:33)
--- NOTE | 2018-11-17 20:33 | ER Document Report ---
ED Headache - General Chief Complaint: Headache Stated Complaint: HEADACHE Time Seen by Provider: 11/17/18 18:50 Mode of Arrival: Ambulatory Information source: Patient TRAVEL OUTSIDE OF THE [place] IN LAST 30 DAYS: No - HPI Patient complains to provider of: Headache Onset: Last week Onset was: Gradual Timing: Still present Quality of pain: Throbbing Severity: Moderate Context: Other Preceding symptoms: denies: Typical of prior aura(s) - 4 months , Visual disturbance Associated symptoms: Nausea/vomiting Exacerbated by: Light, Noise Similar symptoms previously: No Recently seen / treated by doctor: No Notes: 22-year-old -[place] female coming in today with "major headaches for days now". States she has had vomiting off and on for several days as well. No fevers or chills. - Related Data Allergies/Adverse Reactions: No Known Allergies Allergy (Unverified 09/17/18 18:11) Past Medical History - General Information source: Patient - Social History Smoking Status: Former Smoker Family History: Reviewed & Not Pertinent Patient has suicidal ideation: No Patient has homicidal ideation: No - Past Medical History Cardiac Medical History: Reports: Hx Hypertension Renal/ Medical History: Denies: Hx Peritoneal Dialysis Past Surgical History: Reports: Hx Gynecologic Surgery - X4 - Immunizations Immunizations up to date: Yes Hx Diphtheria, Pertussis, Tetanus Vaccination: Yes Review of Systems - Review of Systems Notes: Constitutional: No fevers. No chills. EENT: No eye redness. No eye pain. No ear pain. No sore throat. Cardiovascular: No chest pain. No palpitations. Respiratory: No cough. No shortness of breath. No respiratory distress. Gastrointestinal: No abdominal pain. Positive nausea and vomiting. Negative diarrhea Genitourinary: Atraumatic. No lesions. No pain. No discharge. Musculoskeletal: Atraumatic. No swelling. No deformities. Skin: No rash or lesions. Lymphatic: No swollen lymph nodes. Neurologic: As above headache. No syncope. Psychiatric: No suicidal or homicidal ideation. Physical Exam - Vital signs Vitals: Temp Pulse Resp BP Pulse Ox 97.7 F 94 18 115/60 97 11/17/18 18:44 11/17/18 18:44 11/17/18 18:44 11/17/18 18:44 11/17/18 18:44 - Notes Notes: General: Well-developed, well-nourished. In no acute distress. Non-toxic appearing. Cardiac: Well-perfused. Regular rate and rhythm. No murmurs, rubs, or gallops. Pulmonary: No respiratory distress. No cyanosis. Bilateral lung fiels are clear to auscultation. Abdominal: Non-distended. Non-rigid. Bowels sounds are present in all four quadrants. No guarding or rebound. HEENT: Head is atraumatic. Conjunctivae not reddened. No tearing. PERRL. EOMI. Orbits atraumatic. No periorbital swelling or erythema. Oropharynx is without erythema, swelling, or exudates. Neck: Supple. No adenopathy. No meningismus. Dermatologic: Warm with good turgor. No rash. Atraumatic. Chest: Atraumatic. No chest wall tenderness to palpation. Musculoskeletal: Moves all extremities well. No range of motion deficits. no muscular or joint tenderness. No paraspinal muscle tenderness. no midline spinal tenderness or step-off. Genitourinary: Examination deferred Neurologic: No gross neurologic deficits. Psychiatric: Normal mood. Course - Re-evaluation Re-evalutation: 11/17/18 20:32 Labs look good. We will go ahead and give patient some Reglan and Benadryl IV as well as a liter fluid and see if we will get her headache better and also her nausea. 11/17/18 21:24 Headache improved. Will discharge home after IV fluid. - Vital Signs Vital signs: Temp Pulse Resp BP Pulse Ox 98.8 F 94 18 115/60 97 11/17/18 20:25 11/17/18 18:44 11/17/18 18:44 11/17/18 18:44 11/17/18 18:44 - Laboratory Result Diagrams: 11/17/18 19:00 11/17/18 19:00 Laboratory results interpreted by me: 11/17/18 11/17/18 19:00 19:00 Hct 35.6 L Sodium 135.2 L BUN 5 L Creatinine 0.39 L Discharge - Discharge Clinical Impression: Nausea and vomiting during Headache Qualifiers: Headache type: other headache syndrome Qualified Code(s): G44.89 - Other headache syndrome Condition: Good Disposition: HOME, SELF-CARE Instructions: Antinausea Medication ([facility]), Headache ([facility]), Intravenous (IV) Fluids ([facility]), Reglan ([facility]), Vomiting ([facility]) Additional Instructions: you can take the Reglan for nausea and vomiting or headache during . Please follow-up with your animal surgeon in the next couple of days. Prescriptions: Metoclopramide HCl [Reglan 10 mg Tablet] 1 tab PO Q6HP PRN #20 tablet PRN Reason: Referrals: ob, your [Other] - Follow up tomorrow
== END 2018-11-17 21:53 | disposition home or self-care (01) ==
LOC: ER 18:35
DX: O21.9 Vomiting of pregnancy, unspecified (principal); G44.89 Other headache syndrome; Z3A.16 16 weeks gestation of pregnancy
CPT/HCPCS: 99284; 96361; 96374; 96375; 36415; 85025; 80053; J1200; S0119; J2765; J7030

== ENCOUNTER 2019-01-17 21:36 | Outpatient (CLI) | payer MEDICAID ==
[2019-01-17 22:30] LABS: ABSOLUTE EOSINOPHILS # (AUTO) 0.2 10^3/uL (0.0-0.6); ABSOLUTE LYMPHOCYTES (AUTO) 1.7 10^3/uL (0.5-4.7); ABSOLUTE MONOCYTES (AUTO) 0.5 10^3/uL (0.1-1.4); ABSOLUTE NEUT (AUTO) 6.6 10^3/uL (1.7-8.2); BASOPHILS % (AUTO) 0.3 % (0-2); EOSINOPHILS % (AUTO) 2.2 % (0-6); HEMATOCRIT 31.6 % (36.0-47.0); HEMOGLOBIN 10.4 g/dL (12.0-15.5); MEAN CORPUSCULAR HEMOGLOBIN 29.4 pg (27.0-33.4); MEAN CORPUSCULAR HGB CONC 33.1 g/dL (32.0-36.0); MEAN CORPUSCULAR VOLUME 89 fl (80-97); PLATELET COUNT 320 10^3/uL (150-450); RED BLOOD COUNT 3.56 10^6/uL (3.72-5.28); RED CELL DISTRIBUTION WIDTH 13.5 % (11.5-14.0); SEGMENTED NEUTROPHILS % (AUTO) 72.5 % (42-78); TOTAL CELLS COUNTED % (AUTO) 100 %; WHITE BLOOD COUNT 9.1 10^3/uL (4.0-10.5)
[2019-01-17 22:32] LABS: INTERNATIONAL RATION (INR) 0.86; PROTHROMBIN TIME 12.2 SEC (11.4-15.4)
[2019-01-17 23:05] LABS: APPEARANCE,URINE SLIGHTLY-CLOUDY; BILIRUBIN,URINE NEGATIVE (NEGATIVE); COLOR,URINE STRAW; GLUCOSE, URINE NEGATIVE (NEGATIVE); KETONES,URINE NEGATIVE (NEGATIVE); LEUKOCYTE ESTERASE,URINE LARGE (NEGATIVE); NITRITE,URINE NEGATIVE (NEGATIVE); PROTEIN,URINE NEGATIVE (NEGATIVE); URINE SPECIFIC GRAVITY 1.006; UROBILINOGEN,URINE NEGATIVE mg/dL (<2.0)
[2019-01-17 23:17] LABS: URINE AMPHETAMINES SCREEN NEGATIVE; URINE BARBITURATES SCREEN NEGATIVE; URINE BENZODIAZEPINES SCREEN NEGATIVE; URINE COCAINE SCREEN NEGATIVE; URINE MARIJUANA (THC) SCREEN NEGATIVE; URINE METHADONE SCREEN NEGATIVE; URINE PHENCYCLIDINE SCREEN NEGATIVE
[2019-01-18 02:17] LABS: FETAL RBC COUNT 0
[2019-01-18 02:19] LABS: KB INTERPRETATION NEGATIVE (NEGATIVE)
== END 2019-01-17 22:14 | disposition home or self-care (01) ==
LOC: LC 21:36
PROVIDERS: ATTEND Student in an Organized Health Care Education/Training Program
DX: O9A.212 Injury, poisoning and certain other consequences of external causes complicating pregnancy, second trimester (principal); Y04.0XXA Assault by unarmed brawl or fight, initial encounter; Z3A.21 21 weeks gestation of pregnancy
CPT/HCPCS: 36415; 80307; 81001; 85025; 85362; 85460; 85610; 85730; 87086; 87088

== ENCOUNTER 2019-03-12 15:34 | Outpatient (CLI) | payer MEDICAID ==
[2019-03-12 17:26] LABS: APPEARANCE,URINE CLOUDY; BILIRUBIN,URINE NEGATIVE (NEGATIVE); COLOR,URINE YELLOW; GLUCOSE, URINE NEGATIVE (NEGATIVE); KETONES,URINE 20 mg/dL (NEGATIVE); LEUKOCYTE ESTERASE,URINE LARGE (NEGATIVE); NITRITE,URINE NEGATIVE (NEGATIVE); PROTEIN,URINE NEGATIVE (NEGATIVE); URINE SPECIFIC GRAVITY 1.018; UROBILINOGEN,URINE NEGATIVE mg/dL (<2.0)
[2019-03-12 17:42] LABS: URINE AMPHETAMINES SCREEN NEGATIVE; URINE BARBITURATES SCREEN NEGATIVE; URINE BENZODIAZEPINES SCREEN NEGATIVE; URINE COCAINE SCREEN NEGATIVE; URINE MARIJUANA (THC) SCREEN NEGATIVE; URINE METHADONE SCREEN NEGATIVE; URINE PHENCYCLIDINE SCREEN NEGATIVE
== END 2019-03-12 17:42 | disposition home or self-care (01) ==
LOC: LC 15:34
PROVIDERS: ATTEND Student in an Organized Health Care Education/Training Program
PROC: 4A1HXCZ Monitoring of Products of Conception, Cardiac Rate, External Approach (ICD-10-PCS; principal; 2019-03-12)
DX: O26.893 Other specified pregnancy related conditions, third trimester (principal); Z3A.29 29 weeks gestation of pregnancy
CPT/HCPCS: 80307; 81001; 87086; 87088

== ENCOUNTER 2019-03-17 10:46 | Outpatient (CLI) | payer MEDICAID ==
[2019-03-17] MEDS ORDERED: BETAMET ACET/BETAMET NA INJ 6 MG/1 ML ONE (11:12)
[2019-03-17] MEDS ORDERED: BETAMET ACET/BETAMET NA INJ 6 MG/1 ML IM SCH (12:00)
[2019-03-17 12:08] LABS: T.VAGINALIS (WET MOUNT) NO TRICHOMONAS SEEN; WBCS (WET MOUNT) 3+ WBCS SEEN; YEAST (WET MOUNT) NO YEAST SEEN
[2019-03-17 12:09] LABS: BACTERIA (WET MOUNT) 4+ BACTERIA SEEN; EPITHELIALS (WET MOUNT) 4+ EPITHELIALS SEEN; RBCS (WET MOUNT) FEW RBCS SEEN
[2019-03-17 12:20] LABS: APPEARANCE,URINE CLEAR; BILIRUBIN,URINE NEGATIVE (NEGATIVE); COLOR,URINE YELLOW; GLUCOSE, URINE >=500 mg/dL (NEGATIVE); KETONES,URINE TRACE mg/dL (NEGATIVE); LEUKOCYTE ESTERASE,URINE NEGATIVE (NEGATIVE); NITRITE,URINE NEGATIVE (NEGATIVE); PROTEIN,URINE NEGATIVE (NEGATIVE); URINE SPECIFIC GRAVITY 1.023; UROBILINOGEN,URINE NEGATIVE mg/dL (<2.0)
[2019-03-17 12:44] LABS: URINE AMPHETAMINES SCREEN NEGATIVE; URINE BARBITURATES SCREEN NEGATIVE; URINE BENZODIAZEPINES SCREEN NEGATIVE; URINE COCAINE SCREEN NEGATIVE; URINE MARIJUANA (THC) SCREEN NEGATIVE; URINE METHADONE SCREEN NEGATIVE; URINE PHENCYCLIDINE SCREEN NEGATIVE
[2019-03-17 13:40] LABS: CHLAM PCR NOT DETECTED (NOT DETECT)
== END 2019-03-17 14:13 | disposition home or self-care (01) ==
LOC: LC 10:46
PROVIDERS: ATTEND Obstetrics & Gynecology
PROC: 4A1HXCZ Monitoring of Products of Conception, Cardiac Rate, External Approach (ICD-10-PCS; principal; 2019-03-17)
DX: O26.873 Cervical shortening, third trimester (principal); Z3A.29 29 weeks gestation of pregnancy
CPT/HCPCS: 96372; 87210; 81001; 80307; 87491; 87591; 59899; J0702